=== PATIENT | male | born 1990 | race American Indian/Alaskan Native ===

== ENCOUNTER 2019-11-16 04:03 | Emergency (ER) | payer SELFPAY ==
[2019-11-16 04:10] VITALS: BP 123/69
[2019-11-16 04:31] LABS: Basophils # (Auto) 0.1 K/mm3 (0.0-0.1); Eosinophils # (Auto) 0.2 K/mm3 (0.0-0.4); Eosinophils % (Auto) 4.1 % (0.0-4.3); Hematocrit 42.9 % (35.5-45.6); Hemoglobin 14.6 gm/dl (11.8-15.2); Lymphocytes # (Auto) 2.3 K/mm3 (1.2-5.4); Lymphocytes % (Auto) 42.1 % (13.4-35.0); Mean Corpuscular HGB Conc 34 % (32-34); Mean Corpuscular Volume 88 fl (84-94); Monocytes # (Auto) 0.5 K/mm3 (0.0-0.8); Monocytes % (Auto) 8.9 % (0.0-7.3); Platelet Count 237 K/mm3 (140-440); Red Blood Count 4.88 M/mm3 (3.65-5.03)
[2019-11-16 04:51] LABS: Alanine Aminotransferase 27 units/L (7-56); Albumin 4.5 g/dL (3.9-5); BUN/Creatinine Ratio 21; Blood Urea Nitrogen 21 mg/dL (9-20); Calcium 9.1 mg/dL (8.4-10.2); Hemolysis Index 9
[2019-11-16] MEDS ORDERED: dexAMETHasone 20 MG/5 ML VIAL IM ONE (05:25)
[2019-11-16] MEDS ORDERED: KETOROLAC 30 MG/1 ML INJ IM ONE (05:25)
[2019-11-16] MEDS ORDERED: ACETAMINOPHEN 500 MG TAB PO ONE (05:33)
[2019-11-16 05:48] LABS: Bilirubin,Urine NEG (Negative); Blood,Urine NEG (Negative); Color,Urine Yellow (Yellow); Mucus,Urine 3+ /HPF; Protein,Urine <15 mg/dL mg/dL (Negative)
--- NOTE | 2019-11-16 05:57 | Emergency Department Report ---
ED General Adult HPI - General Chief complaint: Abdominal Pain Stated complaint: RT GROIN PAIN Source: patient Mode of arrival: Ambulatory Limitations: No Limitations - History of Present Illness Initial comments: Patient is a 29 yo AA male with no past medical history who presents to the ED with c/o acute onset persistent severe right inguinal and hip pain for the last 1 week. Patient states that the pain began after sexual intercourse and lifting his spouse over 1 week ago. Patient states that the pain got worse in the last 2 days. Patient denies dyspnea, testicular pain, scrotal pain, fall, headache, nausea, vomiting, diarrhea, low back pain, fever, hematuria, numbness and tingling of lower extremities bilaterally. Patient states that he has been taking motrin 800mg for pain with no relief. MD Complaint: right inguinal pain; muscle strain -: Sudden, week(s) (1) Location: lower extremity (right inguinal muscle strain) Radiation: extremity (right inguinal) Severity scale (0 -10): 10 Quality: aching, sharp, constant Consistency: constant Improves with: rest Worsens with: movement (right inguinal) Associated Symptoms: denies other symptoms. denies: confusion, chest pain, cough, diaphoresis, fever/chills, headaches, loss of appetite, malaise, nausea/vomiting, rash, seizure, shortness of breath, weakness Treatments Prior to Arrival: NSAID - Related Data Previous Rx's Medication Instructions Recorded Last Taken Type Ketorolac [Toradol] 10 mg PO Q8H PRN #20 tablet 11/16/19 Unknown Rx methOCARBAMOL [Robaxin TAB] 750 mg PO Q8H PRN #24 tablet 11/16/19 Unknown Rx predniSONE [Deltasone] 60 mg PO QDAY #15 tab 11/16/19 Unknown Rx traMADoL [Ultram] 50 mg PO Q6HR PRN #12 tablet 11/16/19 Unknown Rx Allergies Allergy/AdvReac Type Severity Reaction Status Date / Time No Known Allergies Allergy Unverified 11/16/19 04:15 ED Review of Systems ROS: Stated complaint: RT GROIN PAIN Other details as noted in HPI Comment: All other systems reviewed and negative Constitutional: denies: chills, fever Eyes: denies: eye pain, eye discharge, vision change ENT: denies: ear pain, throat pain Respiratory: denies: cough, shortness of breath, wheezing Cardiovascular: denies: chest pain, palpitations Endocrine: no symptoms reported Gastrointestinal: denies: abdominal pain, nausea, vomiting, diarrhea Genitourinary: denies: urgency, dysuria Musculoskeletal: arthralgia (right inguinal pain; muscle strain of right groin). denies: back pain, joint swelling Skin: denies: rash, lesions Neurological: denies: headache, weakness, paresthesias Psychiatric: denies: anxiety, depression Hematological/Lymphatic: denies: easy bleeding, easy bruising ED Past Medical Hx - Past Medical History Previous Medical History?: No - Surgical History Past Surgical History?: No - Social History Smoking Status: Never Smoker Substance Use Type: Marijuana - Medications Home Medications: Home Medications Medication Instructions Recorded Confirmed Last Taken Type Ketorolac [Toradol] 10 mg PO Q8H PRN #20 tablet 11/16/19 Unknown Rx methOCARBAMOL [Robaxin TAB] 750 mg PO Q8H PRN #24 tablet 11/16/19 Unknown Rx predniSONE [Deltasone] 60 mg PO QDAY #15 tab 11/16/19 Unknown Rx traMADoL [Ultram] 50 mg PO Q6HR PRN #12 tablet 11/16/19 Unknown Rx ED Physical Exam - General Limitations: No Limitations General appearance: alert, in no apparent distress - Head Head exam: Present: atraumatic, normocephalic, normal inspection - Eye Eye exam: Present: normal appearance, PERRL, EOMI Pupils: Present: normal accommodation - ENT ENT exam: Present: normal exam, normal orophraynx, mucous membranes moist, TM's normal bilaterally, normal external ear exam - Neck Neck exam: Present: normal inspection, full ROM - Respiratory Respiratory exam: Present: normal lung sounds bilaterally. Absent: respiratory distress, wheezes, rales, rhonchi, chest wall tenderness, accessory muscle use, decreased breath sounds, prolonged expiratory - Cardiovascular Cardiovascular Exam: Present: regular rate, normal rhythm, normal heart sounds. Absent: systolic murmur, diastolic murmur, rubs, gallop - GI/Abdominal GI/Abdominal exam: Present: soft, normal bowel sounds. Absent: tenderness, guarding, hyperactive bowel sounds, hypoactive bowel sounds - Extremities Exam Extremities exam: Present: normal inspection, tenderness (Palpable right inguinal tenderness), normal capillary refill. Absent: full ROM (limited ROM of right groin due to pain), pedal edema, joint swelling, calf tenderness - Back Exam Back exam: Present: normal inspection, full ROM. Absent: tenderness, CVA tenderness (R), CVA tenderness (L), muscle spasm, paraspinal tenderness, verteb ral tenderness, rash noted - Neurological Exam Neurological exam: Present: alert, oriented X3, CN II-XII intact, normal gait, reflexes normal - Psychiatric Psychiatric exam: Present: normal affect, normal mood - Skin Skin exam: Present: warm, dry, intact, normal color. Absent: rash ED Course Vital Signs 11/16/19 11/16/19 04:08 05:52 Temperature 98.5 F Pulse Rate 86 Respiratory 19 20 Rate Blood Pressure 123/69 O2 Sat by Pulse 98 Oximetry ED Medical Decision Making - Lab Data Result diagrams: 11/16/19 04:18 11/16/19 04:18 - Medical Decision Making This is a 29 yo AA male with no past medical history who presents to the ED who presents to the ED with c/o acute onset persistent right inguinal pain for 1 week after straineous sexual intercourse over 1 week ago. Patient states that the pain has worsened in the last 2 days. In the ED patient is alert and oriented x 3 and is in no distress, but in pain. Patient was treated for pain, and all lab test results are unremarkable. Patient was discharged home on pain medications and muscle relaxants and advised to follow up with his PCP in 7-10 days. Patient was advised to return to the ED immediately if symptoms get worse. - Differential Diagnosis Inguinal muscle strain; Right hip bursitis Critical care attestation.: If time is entered above; I have spent that time in minutes in the direct care of this critically ill patient, excluding procedure time. ED Disposition Clinical Impression: Right hip tendonitis Strain of right inguinal muscle Qualifiers: Encounter type: initial encounter Qualified Code(s): S39.013A - Strain of muscle, fascia and tendon of pelvis, initial encounter Disposition: TO HOME OR SELFCARE Is pt being admited?: No Does the pt Need Aspirin: No Condition: Stable Instructions: Muscle Strain (ED), Groin Strain (ED), Musculoskeletal Pain (ED), Tendinitis (ED) Additional Instructions: Your symptoms are due to right inguinal muscle strain due to physical strain. Take medications with food, drink plenty of fluids and follow up with your Primary Care Physician in 7-10 days. Return to the ED immediately if symptoms get worse. Prescriptions: predniSONE [Deltasone] 60 mg PO QDAY #15 tab methOCARBAMOL [Robaxin TAB] 750 mg PO Q8H PRN #24 tablet PRN Reason: Pain , Severe (7-10) Ketorolac [Toradol] 10 mg PO Q8H PRN #20 tablet PRN Reason: Pain traMADoL [Ultram] 50 mg PO Q6HR PRN #12 tablet PRN Reason: Pain Referrals: KRIS JUÁREZ MD [Staff Physician] - 3-5 Days Time of Disposition: 06:08 Print Language: ALBANIAN
== END 2019-11-16 06:53 | disposition home or self-care (01) ==
LOC: ED 04:03
DX: S39.013A Strain of muscle, fascia and tendon of pelvis, initial encounter (principal); M76.891 Other specified enthesopathies of right lower limb, excluding foot; F12.10 Cannabis abuse, uncomplicated; X58.XXXA Exposure to other specified factors, initial encounter; Y93.89 Activity, other specified; Y92.89 Other specified places as the place of occurrence of the external cause; Y99.8 Other external cause status
CPT/HCPCS: 36415; 80053; 81001; 85025; 96372; 99283; J1100; J1885